=== PATIENT | female | born 1985 | race Two or more races ===

== ENCOUNTER 2016-06-01 05:43 | Emergency (ER) | payer BC ==
[~2016-06-01] VITALS: Ht 172.7 cm; Wt 99.8 kg
[2016-06-01] MEDS ORDERED: Solu-MEDROL 125mg Inj IVP ONE (06:30)
[2016-06-01] MEDS ORDERED: Famotidine 20 MG/ 2ML VIAL IVP ONE (06:30)
[2016-06-01] MEDS ORDERED: EPINEPHrine 1mg/1ml Amp IM ONE (06:30)
--- NOTE | 2016-06-01 06:38 | Emergency Room Report ---
History of Present Illness General Chief Complaint: Allergic Reaction Source: Patient Present Illness HPI The patient presents via EMS after having a syncopal episode which began as an allergic reaction. She felt her skin itching and warm. She took 3 Benadryl tablets at home. She drove to work and as she got hit by the cold air she started to feel dizzy. She walked into work and lost her vision and then passed out. There is no trauma when she fell. She next remembers being awakened sitting up by one of her coworkers. EMS was called. Her blood pressure is 90 in the field and they started giving her a fluid bolus. She's had allergies before but never this severe. Usually they get better with Benadryl. She denies any shortness of breath. Itching is getting better at this time. She has any fevers. Her throat is not closing up. She's just finishing her period at this time. She denies any dysuria. She doesn't believe she is . She denies any joint pain. There is no headache at this time and she denies chest pain. Allergies: Coded Allergies: No Known Allergies (Unverified , 06/01/16) Patient History Past Medical History: see triage record Social History: Denies: smoking Social History Narrative She works at [employer] Last Menstrual Period: 05/27/16 Now: No Reviewed Nursing Documentation: PMH: Agreed, PSxH: Agreed Nursing Documentation-PMH Past Medical History: No Stated History Review of Systems All Other Systems: negative except mentioned in HPI Physical Exam Vital Signs Date Time Temp Pulse Resp B/P Pulse Ox O2 Delivery O2 Flow Rate FiO2 06/01/16 05:42 97.3 88 16 90/42 99 Room Air Sp02 EP Interpretation: reviewed, normal General Appearance: well appearing, no apparent distress, GCS 15 Head: normocephalic Eyes: bilateral eye PERRL, bilateral eye normal inspection ENT: no angioedema, normal voice, moist mucus membranes Neck: supple Respiratory: lungs clear, normal breath sounds Cardiovascular #1: regular rate, rhythm Cardiovascular #2: 2+ radial (R) Gastrointestinal: normal inspection, normal bowel sounds, non tender, no mass, non-distended Musculoskeletal: back normal, gait/station normal, normal range of motion Neurologic: alert, oriented x3 - personal Psychiatric: mood/affect normal Skin: warm/dry, other - Erythroderma and maculopapular erythematous areas. The rash is confluent and the skin is slightly edematous. More upper extremities face and arms and her legs. Medical Decision Making Diagnostic Impression: Primary Impression: Anaphylactic reaction Qualified Codes: T78.2XXA - Anaphylactic shock, unspecified, initial encounter Additional Impressions: Syncope Qualified Codes: R55 - Syncope and collapse UTI (urinary tract infection) Qualified Codes: N30.00 - Acute cystitis without hematuria ER Course Patient presents after having a syncopal episode with an allergic reaction. This is classic for anaphylaxis. However we need to exclude any other cardiac phenomenon. The patient will be treated emergently with IM epinephrine, solu Medrol, Pepcid -- she already took Benadryl and also fluids. She'll be observed. Clinically she says that the rash is getting better however the fact she had an anaphylactic syncopal episode is significant and she will need observation. Labs will be taken also. Labs unremarkable except for pyuria. Antibiotics begun. Patient improved with treatment. Discussed importance of Epipen and early treatment. Also discussed possible rebound phenomenon. Stable for outpatient observation and treatment. Laboratory Tests Test 06/01/16 06:35 06/01/16 09:30 White Blood Count 13.0 K/UL (4.8-10.8) H Red Blood Count 4.90 M/UL (4.20-5.40) Hemoglobin 13.5 G/DL (12.0-16.0) Hematocrit 43.9 % (37.0-47.0) Mean Corpuscular Volume 90 FL (80-99) Mean Corpuscular Hemoglobin 27.6 PG (27.0-31.0) Mean Corpuscular Hemoglobin Concent 30.8 G/DL (32.0-36.0) L Red Cell Distribution Width 14.7 % (11.6-14.8) Platelet Count 264 K/UL (150-450) Mean Platelet Volume 7.0 FL (6.5-10.1) Neutrophils (%) (Auto) 84.5 % (45.0-75.0) H Lymphocytes (%) (Auto) 11.8 % (20.0-45.0) L Monocytes (%) (Auto) 3.1 % (1.0-10.0) Eosinophils (%) (Auto) 0.2 % (0.0-3.0) Basophils (%) (Auto) 0.3 % (0.0-2.0) Sodium Level 139 mEQ/L (135-145) Potassium Level 3.4 mEQ/L (3.4-4.9) Chloride Level 101 mEQ/L (98-107) Carbon Dioxide Level 25 mEQ/L (20-30) Anion Gap 13 (5-15) Blood Urea Nitrogen 13 mg/dL (7-23) Creatinine 0.7 mg/dL (0.5-0.9) Estimate Glomerular Filtration Rate > 60 mL/min (>60) Glucose Level 135 mg/dL (74-106) H Calcium Level 8.5 mg/dL (8.6-10.2) L Total Bilirubin 0.4 mg/dL (0.0-1.2) Aspartate Amino Transferase (AST) 20 U/L (5-40) Alanine Aminotransferase (ALT) 15 U/L (3-33) Alkaline Phosphatase 70 U/L (35-104) Total Creatine Kinase 108 U/L (26-140) Troponin I < 0.30 ng/mL (<=0.30) Total Protein 7.0 g/dL (6.6-8.7) Albumin 3.5 g/dL (3.5-5.2) Globulin 3.5 g/dL Albumin/Globulin Ratio 1.0 (1.0-2.7) Urine Color Yellow Urine Appearance Cloudy Urine pH 5 (4.5-8.0) Urine Specific [place] 1.025 (1.005-1.035) Urine Protein 3+ (NEGATIVE) H Urine Glucose (UA) Negative (NEGATIVE) Urine Ketones 1+ (NEGATIVE) H Urine Occult Blood 5+ (NEGATIVE) H Urine Nitrite Negative (NEGATIVE) Urine Bilirubin Negative (NEGATIVE) Urine Urobilinogen Normal MG/DL (0.0-1.0) Urine Leukocyte Esterase 2+ (NEGATIVE) H Urine RBC 2-4 /HPF (0 - 2) H Urine WBC 5-10 /HPF (0 - 2) H Urine Squamous Epithelial Cells Few /LPF (NONE/OCC) Urine Bacteria Few /HPF (NONE) Urine HCG, Qualitative Negative EKG Diagnostic Results Rate: normal Rhythm: NSR ST Segments: no acute changes Rhythm Strip Diag. Results EP Interpretation: yes Rhythm: NSR, no PVC's, no ectopy Last Vital Signs Date Time Temp Pulse Resp B/P Pulse Ox O2 Delivery O2 Flow Rate FiO2 06/01/16 10:48 97.3 85 16 110/53 100 Room Air Status: improved Disposition: HOME, SELF-CARE Condition: Improved Scripts Nitrofurantoin Monohyd/M-Cryst* (MACROBID 100 MG*) 100 Mg Capsule 100 MG ORAL EVERY 12 HOURS, #14 CAP Prov: Dick Christine M.D. 06/01/16 Diphenhydramine Hcl* (BENADRYL*) 25 Mg Capsule 25 MG ORAL Q6H Y for Itching, #20 CAP Prov: Dick Christine M.D. 06/01/16 Prednisone* (PREDNISONE*) 10 Mg Tablet 10 MG ORAL DAILY, #22 TAB 0 Refills 4 po QD X 2, 3 po QD X 2, 2 po QD X 2, 1 po QD X 4 Prov: Dick Christine M.D. 06/01/16 Epinephrine (Epipen 2-William) 0.3 Mg/0.3 Ml Auto.injct 0.3 MG IM NEEDED Y for allergic reaction, #1 EA 2 Refills Prov: Dick Christine M.D. 06/01/16 Dick Christine M.D. Jun 01, 2016 06:38
[2016-06-01] MEDS ORDERED: UNOBMED (07:05)
[2016-06-01 07:06] VITALS: BP 101/48
[2016-06-01 07:15] LABS: BASOPHILS % (AUTO) 0.3 % (0.0-2.0); EOSINOPHILS % (AUTO) 0.2 % (0.0-3.0); LYMPHOCYTES % (AUTO) 11.8 % (20.0-45.0); MEAN CORPUSCULAR HEMOGLOBIN 27.6 PG (27.0-31.0); MEAN CORPUSCULAR HGB CONC 30.8 G/DL (32.0-36.0); MEAN CORPUSCULAR VOLUME 90 FL (80-99); MONOCYTES % (AUTO) 3.1 % (1.0-10.0); NEUTROPHILS % (AUTO) 84.5 % (45.0-75.0); PLATELET COUNT 264 K/UL (150-450); RED CELL DISTRIBUTION WIDTH 14.7 % (11.6-14.8)
[2016-06-01 07:25] LABS: ALANINE AMINOTRANSFERASE 15 U/L (3-33); ANION GAP 13 (5-15); ASPARTATE AMINO TRANSFERASE 20 U/L (5-40); CALCIUM 8.5 mg/dL (8.6-10.2); CARBON DIOXIDE 25 mEQ/L (20-30); CHLORIDE 101 mEQ/L (98-107); CREATININE 0.7 mg/dL (0.5-0.9); GLOMERULAR FILTRATION RATE > 60 mL/min (>60); HEMOLYSIS 26; POTASSIUM 3.4 mEQ/L (3.4-4.9); SODIUM 139 mEQ/L (135-145)
[2016-06-01 07:27] LABS: TROPONIN I < 0.30 ng/mL (<=0.30)
[2016-06-01 09:00] VITALS: BP 110/53
[2016-06-01] MEDS ORDERED: BENADRYL25 MG ORAL (09:42)
[2016-06-01] MEDS ORDERED: PREDNISONE10 MG ORAL (09:42)
[2016-06-01] MEDS ORDERED: EPIPEN 2-P0.3 MG/0.3 IM (09:42)
[2016-06-01 10:08] LABS: APPEARANCE,URINE CLOUDY; KETONES,URINE 1+ (NEGATIVE); LEUKOCYTE ESTERASE ,URINE 2+ (NEGATIVE); NITRITE,URINE NEGATIVE (NEGATIVE); PH,URINE 5 (4.5-8.0); PROTEIN,URINE 3+ (NEGATIVE); UROBILINOGEN,URINE NORMAL MG/DL (0.0-1.0)
--- NOTE | 2016-06-01 10:09 | Diagnostic Imaging Report ---
Indication: Chest pain Technique: One view of the chest Comparison: none Findings: Lungs and pleural spaces are clear. Heart size is normal. Impression: No acute process
[2016-06-01 10:24] LABS: BACTERIA,URINE FEW /HPF; SQUAMOUS EPITHELIAL CELL,UR FEW /LPF (NONE/OCC)
[2016-06-01] MEDS ORDERED: NITROFURANTOIN100 M2 ORAL (10:29)
[2016-06-01 10:30] VITALS: BP 113/57
[2016-06-01 10:48] VITALS: BP 110/53
--- NOTE | 2016-06-05 10:32 | Cardiology Report ---
APPROVED REPORT EKG Measurement Heart [id number] Normal sinus rhythm Normal ECG
== END 2016-06-01 10:55 | disposition home or self-care (01) ==
LOC: EDBD 05:43 → EMR 07:15
DX: T78.2XXA Anaphylactic shock, unspecified, initial encounter (principal); R55 Syncope and collapse; R21 Rash and other nonspecific skin eruption
CPT/HCPCS: 36415; 71010; 80053; 81003; 81025; 82550; 84484; 85025; 93005; 96361; 96372; 96374; 96375; 99284; J0171; J2930; S0028